=== PATIENT | female | born 1970 | race Native Hawaiian/Other Pacific Islander ===

== ENCOUNTER 2017-10-28 16:52 | Emergency (ER) | payer OTHER ==
[~2017-10-28] VITALS: Ht 157.5 cm; Wt 63.5 kg
[2017-10-28 16:54] VITALS: BP 158/87; PULSE 90; RESP 14; TEMP 98; O2SAT 97
[2017-10-28] MEDS ORDERED: SODIUM CHLOR 0.9% 1000 ML INJ 1,000 ML IV ONE (19:45)
[2017-10-28] MEDS ORDERED: PROCHLORPERAZINE INJ 10 MG/2 ML VIAL IVP ONE (19:45)
[2017-10-28] MEDS ORDERED: KETOROLAC TROMETHAMINE 60 MG/2 ML (IM) VIAL IM ONE (19:45)
[2017-10-28 19:50] VITALS: BP 158/85; PULSE 85; RESP 18; O2SAT 99
--- NOTE | 2017-10-28 20:06 | PD ---
HPI Chief Complaint: Hypertension Time Seen by Provider: 19:32 Travel History International Travel<30 days: No Contact w/Intl Traveler<30days: No Traveled to known affect area: No History of Present Illness HPI 47-year-old female presents to emergency department with concerns of elevated blood pressure. States that she has had a headache and vomited once yesterday, went to her doctor's office and they recommended she come to the emergency department for evaluation. States that her blood pressure was 195/90 at her physician's office but is since decreased on its own, without intervention. States that he prescribed clonidine but she has not taken this medication. States that patient just has not felt good over the last couple of days. States she has had a headache that has been persistent but has difficulty describing her headache. Denies cough, congestion. Denies any other medical issues or medication use. PFSH Past Medical History Cardiovascular Problems: Yes Hypertension: Yes Tetanus Vaccination: < 5 Years Influenza Vaccination: No ?: Not Ovarian Cysts: Yes Past Surgical History Surgical History: No Previous Surgery Other Surgery: Yes (ovarian cyst removed) Social History Alcohol Use: No Tobacco Use: No Substance Use: No Allergies-Medications (Allergen,Severity, Reaction): Coded Allergies: No Known Allergies (Unverified , 10/28/17) Reported Meds & Prescriptions Reported Meds & Active Scripts Active Reported Vitamin D (Cholecalciferol) 2,000 Unit Tab 5,000 Unit PO WEEKLY Relenza Inhalation Powder Blister (Zanamivir) 5 Mg/Blister Cap 10 Mg INH DAILY Two inhalations = 10 mg Metformin (Metformin HCl) 500 Mg Tab 500 Mg PO BIDPC Fluticasone Nasal [place] 50 Mcg/Act Naspr 50 Mcg EACH NARE BID 50 mcg/spray Clonidine (Clonidine HCl) 0.1 Mg Tab 0.1 Mg PO TID Atorvastatin (Atorvastatin Calcium) 20 Mg Tab 20 Mg PO HS Amlodipine (Amlodipine Besylate) 5 Mg Tab 5 Mg PO DAILY Review of Systems Except as stated in HPI: all other systems reviewed are Neg Physical Exam Narrative GENERAL: Well-developed well-nourished in no apparent distress, translated through daughter as pt speaks little yi SKIN: Focused skin assessment warm/dry. HEAD: Atraumatic. Normocephalic. EYES: Pupils equal and round. No scleral icterus. No injection or drainage. EOMI ENT: No nasal bleeding or discharge. Mucous membranes pink and moist. Posterior pharynx mildly erythematous NECK: Trachea midline. No JVD. No lymphadenopathy CARDIOVASCULAR: Regular rate and rhythm. No murmur appreciated. RESPIRATORY: No accessory muscle use. Clear to auscultation. Breath sounds equal bilaterally. GASTROINTESTINAL: Abdomen soft, non-tender, nondistended. MUSCULOSKELETAL: No obvious deformities. No clubbing. No cyanosis. No edema. NEUROLOGICAL: Awake and alert. No obvious cranial nerve deficits. Motor grossly within normal limits. Normal speech. PSYCHIATRIC: Appropriate mood and affect; insight and judgment normal. Data Data Last Documented VS Vital Signs Date Time Temp Pulse Resp B/P (MAP) Pulse Ox O2 Delivery O2 Flow Rate FiO2 10/28/17 23:05 98.1 78 18 130/78 (95) 100 10/28/17 21:27 Room Air Orders Orders Complete Blood Count With Diff (10/28/17 19:45) Comprehensive Metabolic Panel (10/28/17 19:45) Ketorolac Inj (Toradol Inj) (10/28/17 19:45) Prochlorperazine Inj (Compazine Inj) (10/28/17 19:45) Sodium Chlor 0.9% 1000 Ml Inj (Ns 1000 M (10/28/17 19:45) Troponin I (10/28/17 19:52) Ct Brain W/O Iv Contrast(Rout) (10/28/17 ) Electrocardiogram (10/28/17 ) Ed Discharge Order (10/28/17 22:58) Labs Laboratory Tests Test 10/28/17 20:12 White Blood Count 11.1 TH/MM3 Red Blood Count 5.55 MIL/MM3 Hemoglobin 12.0 GM/DL Hematocrit 37.8 % Mean Corpuscular Volume 68.2 FL Mean Corpuscular Hemoglobin 21.6 PG Mean Corpuscular Hemoglobin Concent 31.7 % Red Cell Distribution Width 15.7 % Platelet Count 239 TH/MM3 Mean Platelet Volume 9.8 FL Neutrophils (%) (Auto) 60.5 % Lymphocytes (%) (Auto) 31.1 % Monocytes (%) (Auto) 6.8 % Eosinophils (%) (Auto) 1.0 % Basophils (%) (Auto) 0.6 % Neutrophils # (Auto) 6.7 TH/MM3 Lymphocytes # (Auto) 3.4 TH/MM3 Monocytes # (Auto) 0.8 TH/MM3 Eosinophils # (Auto) 0.1 TH/MM3 Basophils # (Auto) 0.1 TH/MM3 CBC Comment DIFF FINAL Differential Comment Blood Urea Nitrogen 12 MG/DL Creatinine 0.81 MG/DL Random Glucose 168 MG/DL Total Protein 8.2 GM/DL Albumin 4.2 GM/DL Calcium Level 9.8 MG/DL Alkaline Phosphatase 65 U/L Aspartate Amino Transf (AST/SGOT) 15 U/L Alanine Aminotransferase (ALT/SGPT) 23 U/L Total Bilirubin 0.5 MG/DL Sodium Level 139 MEQ/L Potassium Level 3.2 MEQ/L Chloride Level 103 MEQ/L Carbon Dioxide Level 26.3 MEQ/L Anion Gap 10 MEQ/L Estimat Glomerular Filtration Rate 76 ML/MIN Troponin I LESS THAN 0.02 NG/ML MDM Medical Decision Making Medical Screen Exam Complete: Yes Emergency Medical Condition: Yes Differential Diagnosis Hypertensive urgency, hypertensive emergency, elevated blood pressure, hypertension Narrative Course 47-year-old female presents to emergency department with concerns of elevated blood pressure. States that she has had a headache and vomited once yesterday, went to her doctor's office and they recommended she come to the emergency department for evaluation. States that her blood pressure was 195/90 at her physician's office but is since decreased on its own. States that he prescribed clonidine but she has not taken this medication. States that patient just has not felt good over the last couple of days. States she has had a headache that has been persistent but has difficulty describing her headache. Denies cough, congestion. Denies any other medical issues or medication use. Vital signs stable. BP 158/87, HR 80 EKG- NS without ST elevations or depressions CBC & BMP Diagram 10/28/17 20:12 Total Protein 8.2, Albumin 4.2, Calcium Level 9.8, Alkaline Phosphatase 65, Aspartate Amino Transf (AST/SGOT) 15, Alanine Aminotransferase (ALT/SGPT) 23, Total Bilirubin 0.5 Imaging Last Impressions Head CT 10/28/17 0000 Signed Impressions: Service Date/Time: , October 28, 2017 20:22 - CONCLUSION: No acute disease. Adam Umana MD Patient was in the emergency department and extended amount of time as the labs were not yet resulted. Interventions Compazine, Toradol, IV fluids administered. Patient states she feels better and would like to go home. I advised that she should follow-up with her primary care physician for treatment and evaluation of her blood pressure. She says that she will follow up with her PCP. Diagnosis Primary Impression: Elevated blood pressure reading Referrals: Primary Care Physician Additional Instructions: Follow-up with primary care physician within 2 days. You may use Tylenol or Motrin for your headache. Follow-up with the primary care physician regarding your blood pressure and obtain medication from them as they know your medical history better than we do. Disposition: 01 DISCHARGE HOME Condition: Stable Lay Lai Oct 28, 2017 20:06
[2017-10-28] MEDS ORDERED: AMLO5TAB2 PO (20:14)
[2017-10-28] MEDS ORDERED: RELEMIS INH (20:18)
[2017-10-28] MEDS ORDERED: CLON0.1T PO (20:18)
[2017-10-28] MEDS ORDERED: ATOR20TA15 PO (20:18)
[2017-10-28] MEDS ORDERED: METF500T PO (20:18)
[2017-10-28] MEDS ORDERED: VITA20003 PO (20:18)
[2017-10-28] MEDS ORDERED: FLUT50SP EACH NARE (20:18)
[2017-10-28 20:29] LABS: AUTOMATED NEUTROPHIL # 6.7 TH/MM3 (1.8-7.7); BASOPHIL # 0.1 TH/MM3 (0-0.2); BASOPHIL % 0.6 % (0.0-2.0); EOSINOPHIL # 0.1 TH/MM3 (0-0.4); HEMATOCRIT 37.8 % (35.0-46.0); LYMPH % 31.1 % (9.0-44.0); LYMPHOCYTE # 3.4 TH/MM3 (1.0-4.8); MEAN CELL VOLUME 68.2 FL (80.0-100.0); MEAN CORPUSCULAR HEMOGLOBIN 21.6 PG (27.0-34.0); MEAN CORPUSCULAR HGB CONC 31.7 % (32.0-36.0); MEAN PLATELET VOLUME 9.8 FL (7.0-11.0); MONO % 6.8 % (0.0-8.0); MONOCYTE # 0.8 TH/MM3 (0-0.9); NEUT % 60.5 % (16.0-70.0); PLATELET COUNT 239 TH/MM3 (150-450); RED BLOOD COUNT 5.55 MIL/MM3 (4.00-5.30); RED CELL DISTRIBUTION WIDTH 15.7 % (11.6-17.2); WHITE BLOOD COUNT 11.1 TH/MM3 (4.0-11.0)
--- NOTE | 2017-10-28 20:37 | RADRPT ---
EXAM DATE/TIME: 10/28/2017 20:22 [facility] COMPARISON: No previous studies available for comparison. INDICATIONS : Dizzy, elevated blood pressure, vomiting RADIATION DOSE: 56.35 CTDIvol (mGy) MEDICAL HISTORY : Cardiovascular disease. Hypertension. SURGICAL HISTORY : Ovarian cyst ENCOUNTER: Initial ACUITY: 1 day PAIN SCALE: 0/10 LOCATION: cranial TECHNIQUE: Multiple contiguous axial images were obtained of the head. Using automated exposure control and adj ustment of the mA and/or kV according to patient size, radiation dose was kept as low as reasonably a chievable to obtain optimal diagnostic quality images. DICOM format image data is available electro nically for review and comparison. FINDINGS: CEREBRUM: The ventricles are normal for age. No evidence of midline shift, mass lesion, hemorrhage or acute in farction. No extra-axial fluid collections are seen. POSTERIOR FOSSA: The cerebellum and brainstem are intact. The 4th ventricle is midline. The cerebellopontine angle i s unremarkable. EXTRACRANIAL: The visualized portion of the orbits is intact. SKULL: The calvaria is intact. No evidence of skull fracture. CONCLUSION: No acute disease. Adam Umana MD on October 28, 2017 at 20:33 Board Certified Radiologist. This report was verified electronically.
[2017-10-28 21:27] VITALS: BP 129/72; PULSE 87; RESP 18; O2SAT 100
[2017-10-28 21:59] VITALS: BP 133/77; PULSE 78; RESP 18; O2SAT 98
[2017-10-28 22:54] LABS: ALBUMIN 4.2 GM/DL (3.4-5.0); AST (GOT) 15 U/L (15-37); BICARBONATE 26.3 MEQ/L (21.0-32.0); BLOOD UREA NITROGEN 12 MG/DL (7-18); CALCIUM 9.8 MG/DL (8.5-10.1); CHLORIDE 103 MEQ/L (98-107); CREATININE 0.81 MG/DL (0.50-1.00); GLOMERULAR FILTRATION RATE 76 ML/MIN (>89); GLUCOSE,RANDOM 168 MG/DL (74-106); SODIUM (NA) 139 MEQ/L (136-145)
[2017-10-28 22:55] LABS: ALT (GPT) 23 U/L (10-53)
[2017-10-28 23:01] LABS: ALKALINE PHOSPHATASE 65 U/L (45-117); TOTAL BILIRUBIN ADULT 0.5 MG/DL (0.2-1.0); TOTAL PROTEIN 8.2 GM/DL (6.4-8.2)
[2017-10-28 23:05] VITALS: BP 130/78; TEMP 98.1
--- NOTE | 2017-10-29 19:06 | EKG ---
Date Performed: 10/28/2017 Time Performed: 20:40:06 PTAGE: 47 years EKG: Sinus rhythm NONSPECIFIC T-WAVE ABNORMALITY BORDERLINE ECG NO PREVIOUS TRACING DOCTOR: Charles Rogers Interpretating Date/Time 10/29/2017 19:03:29
== END 2017-10-28 23:06 | disposition home or self-care (01) ==
LOC: NEPC 16:52
DX: I10 Essential (primary) hypertension (principal); R51 Headache; R94.31 Abnormal electrocardiogram [ECG] [EKG]; Z79.899 Other long term (current) drug therapy
CPT/HCPCS: 70450; 80053; 84484; 85025; 93005; 96372; 96374; 99285; J0780; J1885; J7030